=== PATIENT | male | born 1935 | race Caucasian/White ===

== ENCOUNTER 2021-05-25 01:53 | Inpatient (IN) ==
[2021-05-25] MEDS ORDERED: ASPIRIN 325 MG TABLET ONE (02:06)
[2021-05-25] MEDS ORDERED: MORPHINE 2 MG/1 ML SYRINGE IV STA (02:06)
[2021-05-25] MEDS ORDERED: HEPARIN 5,000 UNIT/1 ML VIAL IV ONE (02:06)
[2021-05-25] MEDS ORDERED: MORPHINE 2 MG/1 ML SYRINGE ONE (02:06)
[2021-05-25] MEDS ORDERED: HEPARIN 5,000 UNIT/1 ML VIAL ONE ×2 (02:06→02:33)
[2021-05-25] MEDS ORDERED: NITROGLYCERIN 2% OINT 1 INCH/GM PACK TOP STA (02:06)
[2021-05-25] MEDS ORDERED: ONDANSETRON 4 MG/2 ML VIAL IV STA (02:06)
[2021-05-25] MEDS ORDERED: ONDANSETRON 4 MG/2 ML VIAL ONE (02:06)
[2021-05-25] MEDS ORDERED: ASPIRIN 325 MG TABLET PO STA (02:06)
[2021-05-25] MEDS ORDERED: LIDOCAINE 1% 20 ML VIAL ONE (02:17)
[2021-05-25] MEDS ORDERED: MIDAZOLAM 2 MG/2 ML VIAL ONE (02:24)
[2021-05-25] MEDS ORDERED: HYDROmorphone 2 MG/1 ML VIAL ONE (02:25)
[2021-05-25 02:34] LABS: Basophils # 0.1 10*3/uL (0.0-0.2); Basophils % 0.5 % (0.0-0.8); Eosinophils # 0.3 10*3/uL (0.0-0.87); Eosinophils % 2.1 % (0.00-10.9); Hematocrit 38.5 VOL% (42.0-52.0); Hemoglobin 12.4 GM/DL (14.0-18.0); Immature Granulocytes % 2.1 %; Immature Granulocytes Absolute 0.28 #; Lymphocytes % 29.6 % (21.2-54.2); Mean Corpuscular HGB Conc 32.2 GM/DL (32-36); Mean Corpuscular Volume 95.1 FL (87-102); Mean Platelet Volume 9.5 FL (9.6-12.0); Monocytes % 5.4 % (1.7-12.7); Neutrophils % 60.3 % (38.7-73.9); Platelet Count 229 T/CUMM (130-400); Red Blood Count 4.05 MC/CUMM (3.8-5.5); Red Cell Distribution Width 14.7 % (9.3-17.3); White Blood Count 13.3 T/CUMM (4-12)
[2021-05-25] MEDS ORDERED: TIROFIBAN 5,000 MCG/100 ML PREMIX IV ONE (02:36)
[2021-05-25] MEDS ORDERED: TIROFIBAN 5,000 MCG/100 ML PREMIX IV SCH (02:41)
[2021-05-25 02:45] LABS: INR 1.1; Partial Thromboplastin Time 27.9 SECS (23.9-33.8)
[2021-05-25] MEDS ORDERED: NOREPINEPHRINE 4 MG/4 ML VIAL IV ONE (02:47)
[2021-05-25 02:48] LABS: INR 1.1; PT Patient Result 11.9 SECS (10.5-12.0)
[2021-05-25 02:58] LABS: Bilirubin,Total 0.6 MG/DL (0.20-1.00); Calcium 8.6 MG/DL (8.5-10.1); Osmolality,Calculated 288.3 MOS/KG (273-304); Potassium 3.7 MMOL/L (3.5-5.1); Total Protein 5.8 G/DL (6.4-8.2)
[2021-05-25] MEDS ORDERED: CLOPIDOGREL 300 MG TABLET ONE (03:26)
[2021-05-25] MEDS ORDERED: NOREPINEPHRINE 4 MG in SODIUM CHLORIDE 0.9% 246 ML IV PRN (03:48)
[2021-05-25] MEDS: ROSUVASTATIN 20 MG TABLET PO SCH (04:20)
[2021-05-25] MEDS ORDERED: METOPROLOL TARTRATE 25 MG TABLET PO ONE (05:49)
[2021-05-25 07:58] LABS: CKMB % 14.3 %; High Sensitive Troponin I* > 125000 ng/L (0-78)
[2021-05-25] MEDS: CLOPIDOGREL 75 MG TABLET PO SCH (09:56)
[2021-05-25] MEDS: ASPIRIN CHEW 81 MG TABLET PO SCH (09:56)
[2021-05-25] MEDS: METOPROLOL TARTRATE 25 MG TABLET PO SCH ×2 (09:56→20:00)
[2021-05-25] MEDS ORDERED: SODIUM CHLORIDE 0.9% 1,000 ML IV SCH (12:00)
[2021-05-26 07:39] LABS: Basophils % 0.1 % (0.0-0.8); Eosinophils % 0.2 % (0.00-10.9); Hematocrit 37.5 VOL% (42.0-52.0); Immature Granulocytes % 0.5 %; Immature Granulocytes Absolute 0.07 #; Lymphocytes # 1.1 10*3/uL (1.4-4.0); Lymphocytes % 7.8 % (21.2-54.2); Mean Corpuscular Volume 94.5 FL (87-102); Mean Platelet Volume 9.4 FL (9.6-12.0); Monocytes % 6.2 % (1.7-12.7); Neutrophils % 85.2 % (38.7-73.9); Platelet Count 180 T/CUMM (130-400); Red Blood Count 3.97 MC/CUMM (3.8-5.5); Red Cell Distribution Width 15.2 % (9.3-17.3); White Blood Count 14.4 T/CUMM (4-12)
[2021-05-26 07:57] LABS: Calcium 8.5 MG/DL (8.5-10.1); Osmolality,Calculated 279.7 MOS/KG (273-304); Potassium 4.5 MMOL/L (3.5-5.1)
[2021-05-26] MEDS: METOPROLOL TARTRATE 25 MG TABLET PO SCH ×2 (08:04→20:37)
[2021-05-26] MEDS: CLOPIDOGREL 75 MG TABLET PO SCH (08:04)
[2021-05-26] MEDS: ROSUVASTATIN 20 MG TABLET PO SCH (08:04)
[2021-05-26] MEDS: LEVOTHYROXINE 88 MCG TABLET PO SCH (08:04)
[2021-05-26] MEDS: ASPIRIN CHEW 81 MG TABLET PO SCH (08:04)
[2021-05-26 08:14] LABS: Risk Ratio 2.79; VLDL Cholesterol 13.8 MG/DL
[2021-05-27 05:24] LABS: Basophils % 0.2 % (0.0-0.8); Eosinophils # 0.2 10*3/uL (0.0-0.87); Eosinophils % 1.5 % (0.00-10.9); Hemoglobin 11.6 GM/DL (14.0-18.0); Immature Granulocytes % 0.6 %; Immature Granulocytes Absolute 0.06 #; Lymphocytes # 1.5 10*3/uL (1.4-4.0); Lymphocytes % 14.8 % (21.2-54.2); Mean Corpuscular HGB Conc 32.2 GM/DL (32-36); Mean Corpuscular Volume 96.3 FL (87-102); Monocytes % 7.8 % (1.7-12.7); Neutrophils % 75.1 % (38.7-73.9); Platelet Count 155 T/CUMM (130-400); Red Blood Count 3.74 MC/CUMM (3.8-5.5); Red Cell Distribution Width 15.1 % (9.3-17.3); White Blood Count 10.1 T/CUMM (4-12)
[2021-05-27 05:45] LABS: Calcium 8.7 MG/DL (8.5-10.1); Osmolality,Calculated 280.5 MOS/KG (273-304); Potassium 3.9 MMOL/L (3.5-5.1)
[2021-05-27] MEDS: ASPIRIN CHEW 81 MG TABLET PO SCH (08:29)
[2021-05-27] MEDS: LEVOTHYROXINE 88 MCG TABLET PO SCH (08:29)
[2021-05-27] MEDS: CLOPIDOGREL 75 MG TABLET PO SCH (08:29)
[2021-05-27] MEDS: METOPROLOL TARTRATE 25 MG TABLET PO SCH (08:29)
[2021-05-27] MEDS: ROSUVASTATIN 20 MG TABLET PO SCH (08:29)
[2021-05-27] MEDS ORDERED: ENOXAPARIN 40 MG/0.4 ML SYRINGE SUBCUT SCH (13:30)
[2021-05-27] MEDS: ASCORBIC ACID 500 MG TABLET PO SCH (21:25)
[2021-05-27] MEDS: METOPROLOL SUCCINATE XL 25 MG TABLET PO SCH (21:26)
[2021-05-27] MEDS: ENOXAPARIN 40 MG/0.4 ML SYRINGE SUBCUT SCH (21:26)
[2021-05-28 07:01] LABS: Basophils % 0.3 % (0.0-0.8); Eosinophils # 0.1 10*3/uL (0.0-0.87); Eosinophils % 1.2 % (0.00-10.9); Hematocrit 35.5 VOL% (42.0-52.0); Hemoglobin 11.2 GM/DL (14.0-18.0); Immature Granulocytes % 0.4 %; Immature Granulocytes Absolute 0.04 #; Lymphocytes # 1.2 10*3/uL (1.4-4.0); Lymphocytes % 13.1 % (21.2-54.2); Mean Corpuscular HGB Conc 31.5 GM/DL (32-36); Mean Corpuscular Volume 97.3 FL (87-102); Mean Platelet Volume 10.4 FL (9.6-12.0); Monocytes % 7.3 % (1.7-12.7); Neutrophils % 77.7 % (38.7-73.9); Platelet Count 158 T/CUMM (130-400); Red Blood Count 3.65 MC/CUMM (3.8-5.5); Red Cell Distribution Width 15.2 % (9.3-17.3); White Blood Count 8.9 T/CUMM (4-12)
[2021-05-28 07:31] LABS: Calcium 9.1 MG/DL (8.5-10.1); Osmolality,Calculated 277.8 MOS/KG (273-304); Potassium 3.8 MMOL/L (3.5-5.1)
[2021-05-28] MEDS: ASPIRIN CHEW 81 MG TABLET PO SCH (09:24)
[2021-05-28] MEDS: LEVOTHYROXINE 88 MCG TABLET PO SCH (09:25)
[2021-05-28] MEDS: ROSUVASTATIN 20 MG TABLET PO SCH (09:25)
[2021-05-28] MEDS: CLOPIDOGREL 75 MG TABLET PO SCH (09:25)
[2021-05-28] MEDS: METOPROLOL SUCCINATE XL 25 MG TABLET PO SCH ×2 (09:25→20:55)
[2021-05-28] MEDS: ASCORBIC ACID 500 MG TABLET PO SCH ×2 (09:25→20:55)
[2021-05-28] MEDS: ENOXAPARIN 40 MG/0.4 ML SYRINGE SUBCUT SCH (20:56)
[2021-05-29 06:05] LABS: Basophils % 0.3 % (0.0-0.8); Eosinophils # 0.2 10*3/uL (0.0-0.87); Hemoglobin 10.1 GM/DL (14.0-18.0); Immature Granulocytes % 0.3 %; Immature Granulocytes Absolute 0.02 #; Lymphocytes # 1.1 10*3/uL (1.4-4.0); Lymphocytes % 17.7 % (21.2-54.2); Mean Corpuscular HGB Conc 32.6 GM/DL (32-36); Mean Corpuscular Volume 94.5 FL (87-102); Mean Platelet Volume 10.3 FL (9.6-12.0); Neutrophils % 70.7 % (38.7-73.9); Platelet Count 150 T/CUMM (130-400); Red Blood Count 3.28 MC/CUMM (3.8-5.5)
[2021-05-29 06:39] LABS: Calcium 8.7 MG/DL (8.5-10.1); Osmolality,Calculated 283.4 MOS/KG (273-304)
[2021-05-29] MEDS: LEVOTHYROXINE 88 MCG TABLET PO SCH (09:14)
[2021-05-29] MEDS: ASPIRIN CHEW 81 MG TABLET PO SCH (09:14)
[2021-05-29] MEDS: METOPROLOL SUCCINATE XL 25 MG TABLET PO SCH ×2 (09:15→22:44)
[2021-05-29] MEDS: ASCORBIC ACID 500 MG TABLET PO SCH ×2 (09:15→22:45)
[2021-05-29] MEDS: ROSUVASTATIN 20 MG TABLET PO SCH (09:15)
[2021-05-29] MEDS: CLOPIDOGREL 75 MG TABLET PO SCH (09:15)
[2021-05-29] MEDS: ENOXAPARIN 40 MG/0.4 ML SYRINGE SUBCUT SCH ×2 (22:44→22:50)
[2021-05-30 05:31] LABS: Basophils % 0.7 % (0.0-0.8); Eosinophils # 0.3 10*3/uL (0.0-0.87); Eosinophils % 4.8 % (0.00-10.9); Hematocrit 33.8 VOL% (42.0-52.0); Hemoglobin 10.7 GM/DL (14.0-18.0); Immature Granulocytes % 0.5 %; Immature Granulocytes Absolute 0.03 #; Lymphocytes # 1.1 10*3/uL (1.4-4.0); Lymphocytes % 18.1 % (21.2-54.2); Mean Corpuscular HGB Conc 31.7 GM/DL (32-36); Mean Corpuscular Volume 95.8 FL (87-102); Monocytes % 8.3 % (1.7-12.7); Neutrophils % 67.6 % (38.7-73.9); Platelet Count 167 T/CUMM (130-400); Red Blood Count 3.53 MC/CUMM (3.8-5.5)
[2021-05-30 05:54] LABS: Calcium 8.9 MG/DL (8.5-10.1); Osmolality,Calculated 281.5 MOS/KG (273-304); Potassium 4.3 MMOL/L (3.5-5.1)
[2021-05-30] MEDS ORDERED: SACUBITRIL/VALSARTAN 49-51 MG TABLET PO SCH (09:00)
[2021-05-30] MEDS: ROSUVASTATIN 20 MG TABLET PO SCH (09:11)
[2021-05-30] MEDS: ASPIRIN CHEW 81 MG TABLET PO SCH (09:11)
[2021-05-30] MEDS: CLOPIDOGREL 75 MG TABLET PO SCH (09:11)
[2021-05-30] MEDS: LOSARTAN 25 MG TABLET PO SCH ×2 (09:11→22:17)
[2021-05-30] MEDS: SPIRONOLACTONE 25 MG TABLET PO SCH (09:11)
[2021-05-30] MEDS: LEVOTHYROXINE 88 MCG TABLET PO SCH (09:12)
[2021-05-30] MEDS: ASCORBIC ACID 500 MG TABLET PO SCH ×2 (09:12→20:23)
[2021-05-30] MEDS: APIXABAN 5 MG TABLET PO SCH ×2 (09:12→20:23)
[2021-05-30] MEDS: METOPROLOL SUCCINATE XL 25 MG TABLET PO SCH ×2 (09:12→22:17)
[2021-05-30] MEDS: FUROSEMIDE 40 MG/4 ML VIAL IV SCH ×2 (09:13→17:03)
[2021-05-30] MEDS ORDERED: SODIUM CHLORIDE 0.45% 1,000 ML IV SCH (17:00)
[2021-05-31 05:04] LABS: Basophils % 0.7 % (0.0-0.8); Eosinophils # 0.2 10*3/uL (0.0-0.87); Eosinophils % 3.4 % (0.00-10.9); Hematocrit 30.9 VOL% (42.0-52.0); Hemoglobin 10.2 GM/DL (14.0-18.0); Immature Granulocytes % 1.2 %; Immature Granulocytes Absolute 0.07 #; Lymphocytes # 1.5 10*3/uL (1.4-4.0); Lymphocytes % 25.8 % (21.2-54.2); Mean Corpuscular Volume 93.6 FL (87-102); Monocytes % 10.6 % (1.7-12.7); Neutrophils % 58.3 % (38.7-73.9); Platelet Count 173 T/CUMM (130-400); Red Cell Distribution Width 14.6 % (9.3-17.3)
[2021-05-31 05:26] LABS: Calcium 8.9 MG/DL (8.5-10.1); Osmolality,Calculated 275.8 MOS/KG (273-304)
[2021-05-31] MEDS: ASPIRIN CHEW 81 MG TABLET PO SCH (09:30)
[2021-05-31] MEDS: CLOPIDOGREL 75 MG TABLET PO SCH (09:30)
[2021-05-31] MEDS: ASCORBIC ACID 500 MG TABLET PO SCH ×2 (09:30→20:19)
[2021-05-31] MEDS: SPIRONOLACTONE 25 MG TABLET PO SCH (09:30)
[2021-05-31] MEDS: APIXABAN 5 MG TABLET PO SCH ×2 (09:31→20:19)
[2021-05-31] MEDS: METOPROLOL SUCCINATE XL 25 MG TABLET PO SCH ×2 (09:31→20:19)
[2021-05-31] MEDS: ROSUVASTATIN 20 MG TABLET PO SCH (09:31)
[2021-05-31] MEDS: LOSARTAN 25 MG TABLET PO SCH ×2 (09:31→20:19)
[2021-05-31] MEDS: LEVOTHYROXINE 88 MCG TABLET PO SCH (09:31)
[2021-06-01 05:49] LABS: Basophils # 0.1 10*3/uL (0.0-0.2); Basophils % 0.8 % (0.0-0.8); Eosinophils # 0.4 10*3/uL (0.0-0.87); Eosinophils % 4.6 % (0.00-10.9); Hematocrit 36.7 VOL% (42.0-52.0); Hemoglobin 11.9 GM/DL (14.0-18.0); Immature Granulocytes % 0.4 %; Immature Granulocytes Absolute 0.03 #; Lymphocytes % 26.3 % (21.2-54.2); Mean Corpuscular HGB Conc 32.4 GM/DL (32-36); Mean Corpuscular Volume 94.3 FL (87-102); Mean Platelet Volume 10.4 FL (9.6-12.0); Monocytes % 8.4 % (1.7-12.7); Neutrophils % 59.5 % (38.7-73.9); Platelet Count 227 T/CUMM (130-400); Red Blood Count 3.89 MC/CUMM (3.8-5.5); Red Cell Distribution Width 14.6 % (9.3-17.3); White Blood Count 7.5 T/CUMM (4-12)
[2021-06-01 06:35] LABS: Calcium 9.1 MG/DL (8.5-10.1); Osmolality,Calculated 282.3 MOS/KG (273-304); Potassium 4.3 MMOL/L (3.5-5.1)
[2021-06-01 08:23] VITALS: BP 106/64
[2021-06-01] MEDS: ASCORBIC ACID 500 MG TABLET PO SCH (08:35)
[2021-06-01] MEDS: METOPROLOL SUCCINATE XL 25 MG TABLET PO SCH (08:35)
[2021-06-01] MEDS: LOSARTAN 25 MG TABLET PO SCH (08:36)
[2021-06-01] MEDS: CLOPIDOGREL 75 MG TABLET PO SCH (08:36)
[2021-06-01] MEDS: LEVOTHYROXINE 88 MCG TABLET PO SCH (08:36)
[2021-06-01] MEDS: SPIRONOLACTONE 25 MG TABLET PO SCH (08:36)
[2021-06-01] MEDS: ROSUVASTATIN 20 MG TABLET PO SCH (08:37)
[2021-06-01] MEDS: ASPIRIN CHEW 81 MG TABLET PO SCH (08:37)
[2021-06-01] MEDS: APIXABAN 5 MG TABLET PO SCH (08:37)
== END 2021-06-01 13:54 | disposition home health service (06) | DRG 246 ==
LOC: EDUNIT# → N.ED 01:53 → N.ICU 02:15 → N.EDINP 02:59 → N.ICU 04:43 → N.CVR 21:59 → N.TELEN 05-26 11:11
PROVIDERS: ADMIT Internal Medicine Cardiovascular Disease; ATTEND Internal Medicine Cardiovascular Disease
PROC: CLCCHCL (ICD-10-PCS; 2021-05-25 02:30)

== ENCOUNTER 2021-06-17 12:02 | Inpatient (IN) ==
[2021-06-17] MEDS ORDERED: levETIRAcetam 500 MG/5 ML VIAL IV ONE (13:03)
[2021-06-17 13:16] LABS: Hematocrit 38.2 VOL% (42.0-52.0); Hemoglobin 12.9 GM/DL (14.0-18.0); Immature Granulocytes % 0.3 %; Immature Granulocytes Absolute 0.02 #; Lymphocytes # 0.6 10*3/uL (1.4-4.0); Lymphocytes % 10.3 % (21.2-54.2); Mean Corpuscular HGB Conc 33.8 GM/DL (32-36); Mean Platelet Volume 10.9 FL (9.6-12.0); Monocytes % 5.8 % (1.7-12.7); Neutrophils % 83.6 % (38.7-73.9); Platelet Count 126 T/CUMM (130-400); Red Blood Count 4.39 MC/CUMM (3.8-5.5); Red Cell Distribution Width 14.5 % (9.3-17.3); White Blood Count 5.9 T/CUMM (4-12)
[2021-06-17 13:34] LABS: INR 1.4; PT Patient Result 14.9 SECS (10.5-12.0)
[2021-06-17] MEDS ORDERED: SODIUM CHLORIDE 0.9% 500 ML IV STA ×2 (13:39→15:29)
[2021-06-17 13:41] LABS: Albumin 2.8 G/DL (3.4-5.0); Bilirubin,Total 0.6 MG/DL (0.20-1.00); Osmolality,Calculated 297.2 MOS/KG (273-304); Potassium 4.6 MMOL/L (3.5-5.1); Total Protein 6.7 G/DL (6.4-8.2)
[2021-06-17] MEDS: SODIUM CHLORIDE 0.9% 1,000 ML IV SCH ×2 (15:38→17:44)
[2021-06-17] MEDS ORDERED: ONDANSETRON 4 MG/2 ML VIAL IV PRN (17:21)
[2021-06-17] MEDS ORDERED: GLUCAGON 1 MG VIAL IM PRN ×2 (17:21→17:35)
[2021-06-17] MEDS ORDERED: ACETAMINOPHEN 325 MG TABLET PO PRN (17:21)
[2021-06-17] MEDS ORDERED: DEXTROSE 50% 25 GM/50 ML VIAL IV PRN ×2 (17:21→17:35)
[2021-06-17] MEDS ORDERED: MELATONIN 3 MG TABLET PO PRN (17:24)
[2021-06-17] MEDS ORDERED: LORazepam 2 MG/1 ML VIAL IV PRN ×2 (17:26→17:37)
[2021-06-17] MEDS ORDERED: HEPARIN 5,000 UNIT/1 ML VIAL SUBCUT SCH (17:30)
[2021-06-17] MEDS ORDERED: SODIUM CHLORIDE 0.9% 1,000 ML IV SCH (17:30)
[2021-06-17] MEDS: HEPARIN 5,000 UNIT/1 ML VIAL SUBCUT SCH (17:51)
[2021-06-17] MEDS: FAMOTIDINE 20 MG TABLET PO SCH (20:40)
[2021-06-17] MEDS: ASCORBIC ACID 500 MG TABLET PO SCH (20:40)
[2021-06-17] MEDS: METOPROLOL SUCCINATE XL 25 MG TABLET PO SCH (20:40)
[2021-06-17] MEDS ORDERED: APIXABAN 2.5 MG TABLET PO SCH (21:00)
[2021-06-18] MEDS: SODIUM CHLORIDE 0.9% 1,000 ML IV SCH ×4 (02:00→20:13)
[2021-06-18] MEDS: HEPARIN 5,000 UNIT/1 ML VIAL SUBCUT SCH ×3 (02:03→17:03)
[2021-06-18 05:44] LABS: Basophils % 0.2 % (0.0-0.8); Eosinophils % 0.2 % (0.00-10.9); Hematocrit 36.1 VOL% (42.0-52.0); Hemoglobin 12.3 GM/DL (14.0-18.0); Immature Granulocytes % 0.4 %; Immature Granulocytes Absolute 0.02 #; Mean Corpuscular HGB Conc 34.1 GM/DL (32-36); Mean Corpuscular Volume 89.1 FL (87-102); Mean Platelet Volume 11.2 FL (9.6-12.0); Monocytes % 6.8 % (1.7-12.7); Neutrophils % 72.4 % (38.7-73.9); Platelet Count 102 T/CUMM (130-400); Red Blood Count 4.05 MC/CUMM (3.8-5.5); Red Cell Distribution Width 14.8 % (9.3-17.3); White Blood Count 4.9 T/CUMM (4-12)
[2021-06-18 05:56] LABS: INR 1.4; PT Patient Result 15.3 SECS (10.5-12.0)
[2021-06-18] MEDS: LEVOTHYROXINE 88 MCG TABLET PO SCH (05:58)
[2021-06-18 06:32] LABS: Albumin 2.4 G/DL (3.4-5.0); Bilirubin,Total 0.7 MG/DL (0.20-1.00); Calcium 7.5 MG/DL (8.5-10.1); Ferritin 842.3 ng/mL (26-388); Osmolality,Calculated 305.7 MOS/KG (273-304); Potassium 4.4 MMOL/L (3.5-5.1); Total Protein 5.8 G/DL (6.4-8.2)
[2021-06-18] MEDS ORDERED: LORazepam 2 MG/1 ML VIAL ONE (08:11)
[2021-06-18] MEDS: CHOLECALCIFEROL 1,000 UNIT TABLET PO SCH (08:59)
[2021-06-18] MEDS: ZINC GLUCONATE 50 MG TABLET PO SCH (08:59)
[2021-06-18] MEDS: ASCORBIC ACID 500 MG TABLET PO SCH ×2 (09:00→21:00)
[2021-06-18] MEDS ORDERED: ZINC SULFATE 220 MG CAPSULE PO SCH (09:00)
[2021-06-18] MEDS ORDERED: DEXAMETHASONE INJ 10 MG in SODIUM CHLORIDE 0.9% 50 ML IV SCH (09:00)
[2021-06-18] MEDS: PANTOPRAZOLE 40 MG TABLET PO SCH (09:00)
[2021-06-18] MEDS: CLOPIDOGREL 75 MG TABLET PO SCH (09:00)
[2021-06-18] MEDS: FAMOTIDINE 20 MG TABLET PO SCH ×3 (09:01→21:00)
[2021-06-18] MEDS: DEXAMETHASONE 4 MG/1 ML VIAL IV SCH (09:01)
[2021-06-18] MEDS: ASPIRIN CHEW 81 MG TABLET PO SCH (09:02)
[2021-06-18] MEDS: AZITHROMYCIN 250 MG TABLET PO SCH (09:03)
[2021-06-18] MEDS: METOPROLOL SUCCINATE XL 25 MG TABLET PO SCH ×2 (11:25→21:00)
[2021-06-18] MEDS: CETIRIZINE 10 MG TABLET PO SCH (11:26)
[2021-06-18] MEDS: cefTRIAXone 1,000 MG in SODIUM CHLORIDE 0.9% 100 ML IV SCH (14:24)
[2021-06-18 16:03] LABS: Bacteria,Urine Moderate /HPF (Few); Bilirubin,Urine Negative (Negative); Blood, Urine Large mg/dL (Negative); Glucose,Urine (UA) Negative (Negative); Ketones,Urine Negative (Negative); Mucus,Urine Occasional /LPF (Occasional); Nitrite,Urine Negative (Negative); Protein,Urine 30 MG/DL; Urine Appearance Slightly Hazy (Clear); Urine Color Yellow (Yellow); Urine Specific Gravity 1.008 (1.001-1.035); Urine Urobilinogen < 2.0 EU/DL (0.2-1.0)
[2021-06-18 16:05] LABS: Barbiturates Screen,Urine Negative (Negative); Benzodiazepines Screen,Urine Negative (Negative); Cannabinoid Screen,Urine Negative (Negative); Opiate Screen,Urine Negative (Negative); Phencyclidine Screen,Urine Negative (Negative)
[2021-06-19] MEDS: HEPARIN 5,000 UNIT/1 ML VIAL SUBCUT SCH ×3 (02:30→18:17)
[2021-06-19] MEDS: SODIUM CHLORIDE 0.9% 1,000 ML IV SCH ×2 (04:58→10:37)
[2021-06-19] MEDS: LEVOTHYROXINE 88 MCG TABLET PO SCH (07:00)
[2021-06-19 07:02] LABS: Hematocrit 39.7 VOL% (42.0-52.0); Hemoglobin 12.9 GM/DL (14.0-18.0); Immature Granulocytes % 0.4 %; Immature Granulocytes Absolute 0.02 #; Lymphocytes # 0.5 10*3/uL (1.4-4.0); Lymphocytes % 9.5 % (21.2-54.2); Mean Corpuscular HGB Conc 32.5 GM/DL (32-36); Mean Corpuscular Volume 92.8 FL (87-102); Mean Platelet Volume 11.1 FL (9.6-12.0); Monocytes % 5.5 % (1.7-12.7); Neutrophils % 84.6 % (38.7-73.9); Platelet Count 97 T/CUMM (130-400); Red Blood Count 4.28 MC/CUMM (3.8-5.5); Red Cell Distribution Width 15.3 % (9.3-17.3); White Blood Count 4.9 T/CUMM (4-12)
[2021-06-19 07:28] LABS: Calcium 7.6 MG/DL (8.5-10.1); Osmolality,Calculated 314.1 MOS/KG (273-304); Potassium 5.4 MMOL/L (3.5-5.1)
[2021-06-19 08:07] LABS: Platelet Estimate Decreased
[2021-06-19 08:08] LABS: Anisocytosis 1+; Burr Cells 3+; Macrocytosis 1+; Spherocytes Few
[2021-06-19] MEDS: ASPIRIN CHEW 81 MG TABLET PO SCH (10:31)
[2021-06-19] MEDS: DEXAMETHASONE 4 MG/1 ML VIAL IV SCH (10:31)
[2021-06-19] MEDS: FAMOTIDINE 20 MG TABLET PO SCH ×3 (10:32→21:14)
[2021-06-19] MEDS: CLOPIDOGREL 75 MG TABLET PO SCH (10:34)
[2021-06-19] MEDS: PANTOPRAZOLE 40 MG TABLET PO SCH (10:34)
[2021-06-19] MEDS: CHOLECALCIFEROL 1,000 UNIT TABLET PO SCH (10:34)
[2021-06-19] MEDS: METOPROLOL SUCCINATE XL 25 MG TABLET PO SCH ×2 (10:34→21:14)
[2021-06-19] MEDS: ASCORBIC ACID 500 MG TABLET PO SCH ×2 (10:34→21:14)
[2021-06-19] MEDS: AZITHROMYCIN 250 MG TABLET PO SCH (10:35)
[2021-06-19] MEDS: ZINC GLUCONATE 50 MG TABLET PO SCH (10:35)
[2021-06-19] MEDS: CETIRIZINE 10 MG TABLET PO SCH (10:36)
[2021-06-19] MEDS: cefTRIAXone 1,000 MG in SODIUM CHLORIDE 0.9% 100 ML IV SCH (11:30)
[2021-06-19] MEDS: SODIUM BICARB INJ 50 MEQ in DEXTROSE 5% 1,000 ML IV SCH (17:30)
[2021-06-19] MEDS: LORazepam 2 MG/1 ML VIAL IV PRN (20:15)
[2021-06-20] MEDS: HEPARIN 5,000 UNIT/1 ML VIAL SUBCUT SCH ×3 (03:15→17:46)
[2021-06-20] MEDS: LORazepam 2 MG/1 ML VIAL IV PRN ×2 (03:30→19:45)
[2021-06-20] MEDS: SODIUM BICARB INJ 50 MEQ in DEXTROSE 5% 1,000 ML IV SCH ×2 (04:14→14:06)
[2021-06-20 04:23] LABS: ABG Base Excess -12.2 MMOL/L (-2.5-2.5); ABG Oxygen Saturation 98.2 % (95-100); ABG PCO2 22.8 MM HG (35-48); ABG PH 7.337 (7.35-7.45)
[2021-06-20 04:24] LABS: Allen Test Positive
[2021-06-20] MEDS: LEVOTHYROXINE 88 MCG TABLET PO SCH (06:38)
[2021-06-20] MEDS: DEXAMETHASONE 4 MG/1 ML VIAL IV SCH (09:03)
[2021-06-20] MEDS: ASPIRIN CHEW 81 MG TABLET PO SCH (09:29)
[2021-06-20] MEDS: CLOPIDOGREL 75 MG TABLET PO SCH (09:29)
[2021-06-20] MEDS: FAMOTIDINE 20 MG TABLET PO SCH ×3 (09:29→20:14)
[2021-06-20] MEDS: AZITHROMYCIN 250 MG TABLET PO SCH (09:30)
[2021-06-20] MEDS: ZINC GLUCONATE 50 MG TABLET PO SCH (09:30)
[2021-06-20] MEDS: CHOLECALCIFEROL 1,000 UNIT TABLET PO SCH (09:30)
[2021-06-20] MEDS: METOPROLOL SUCCINATE XL 25 MG TABLET PO SCH ×2 (09:30→20:15)
[2021-06-20] MEDS: ASCORBIC ACID 500 MG TABLET PO SCH ×2 (09:30→20:15)
[2021-06-20] MEDS: PANTOPRAZOLE 40 MG TABLET PO SCH (09:30)
[2021-06-20] MEDS: CETIRIZINE 10 MG TABLET PO SCH (09:31)
[2021-06-20 11:27] LABS: Hemoglobin 11.1 GM/DL (14.0-18.0); Immature Granulocytes % 0.3 %; Immature Granulocytes Absolute 0.03 #; Lymphocytes # 0.4 10*3/uL (1.4-4.0); Lymphocytes % 4.8 % (21.2-54.2); Mean Corpuscular HGB Conc 33.6 GM/DL (32-36); Mean Platelet Volume 10.7 FL (9.6-12.0); Neutrophils % 89.9 % (38.7-73.9); Platelet Count 125 T/CUMM (130-400); Red Blood Count 3.75 MC/CUMM (3.8-5.5); Red Cell Distribution Width 15.2 % (9.3-17.3); White Blood Count 8.7 T/CUMM (4-12)
[2021-06-20 11:54] LABS: Calcium 7.7 MG/DL (8.5-10.1); Osmolality,Calculated 317.5 MOS/KG (273-304); Potassium 4.6 MMOL/L (3.5-5.1)
[2021-06-20] MEDS: cefTRIAXone 1,000 MG in SODIUM CHLORIDE 0.9% 100 ML IV SCH (11:54)
[2021-06-20 11:58] LABS: Ferritin 586.8 ng/mL (26-388)
[2021-06-20 12:07] LABS: Band Neutrophils 3 % (0-10); Lymphocytes 6 % (20-55); Segmented Neutrophils 83 % (50-85); Total Cells Counted 100
[2021-06-20 12:08] LABS: Hypochromasia Slight; Microcytosis 1+; Ovalocytes Few
[2021-06-20 12:09] LABS: Platelet Estimate Adequate
[2021-06-21] MEDS: SODIUM BICARB INJ 50 MEQ in DEXTROSE 5% 1,000 ML IV SCH ×2 (01:51→13:07)
[2021-06-21] MEDS: HEPARIN 5,000 UNIT/1 ML VIAL SUBCUT SCH ×3 (02:26→17:00)
[2021-06-21] MEDS: LORazepam 2 MG/1 ML VIAL IV PRN ×3 (03:30→15:18)
[2021-06-21] MEDS: LEVOTHYROXINE 88 MCG TABLET PO SCH (06:16)
[2021-06-21 06:59] LABS: Basophils % 0.1 % (0.0-0.8); Hematocrit 31.9 VOL% (42.0-52.0); Hemoglobin 10.7 GM/DL (14.0-18.0); Immature Granulocytes % 0.9 %; Lymphocytes # 0.4 10*3/uL (1.4-4.0); Lymphocytes % 3.9 % (21.2-54.2); Mean Corpuscular HGB Conc 33.5 GM/DL (32-36); Mean Corpuscular Volume 87.6 FL (87-102); Mean Platelet Volume 10.5 FL (9.6-12.0); Monocytes % 4.9 % (1.7-12.7); Neutrophils % 90.2 % (38.7-73.9); Platelet Count 123 T/CUMM (130-400); Red Blood Count 3.64 MC/CUMM (3.8-5.5); Red Cell Distribution Width 15.1 % (9.3-17.3); White Blood Count 11.2 T/CUMM (4-12)
[2021-06-21 07:17] LABS: Calcium 7.7 MG/DL (8.5-10.1); Osmolality,Calculated 311.5 MOS/KG (273-304); Potassium 4.2 MMOL/L (3.5-5.1)
[2021-06-21 07:25] LABS: Hypochromasia Slight; Lymphocytes 5 % (20-55); Microcytosis Slight; Segmented Neutrophils 89 % (50-85); Total Cells Counted 100
[2021-06-21 07:26] LABS: Ovalocytes Slight
[2021-06-21 07:33] LABS: Ferritin 532.2 ng/mL (26-388)
[2021-06-21] MEDS: DEXAMETHASONE 4 MG/1 ML VIAL IV SCH (08:08)
[2021-06-21] MEDS: cefTRIAXone 1,000 MG in SODIUM CHLORIDE 0.9% 100 ML IV SCH (08:09)
[2021-06-21] MEDS: FAMOTIDINE 20 MG TABLET PO SCH (08:30)
[2021-06-21] MEDS: METOPROLOL SUCCINATE XL 25 MG TABLET PO SCH (08:30)
[2021-06-21] MEDS: CLOPIDOGREL 75 MG TABLET PO SCH (08:30)
[2021-06-21] MEDS: PANTOPRAZOLE 40 MG TABLET PO SCH (08:30)
[2021-06-21] MEDS: ASPIRIN CHEW 81 MG TABLET PO SCH (08:30)
[2021-06-21] MEDS: AZITHROMYCIN 250 MG TABLET PO SCH (08:31)
[2021-06-21] MEDS: ZINC GLUCONATE 50 MG TABLET PO SCH (08:31)
[2021-06-21] MEDS: CHOLECALCIFEROL 1,000 UNIT TABLET PO SCH (08:31)
[2021-06-21] MEDS: ASCORBIC ACID 500 MG TABLET PO SCH (08:31)
[2021-06-21] MEDS: CETIRIZINE 10 MG TABLET PO SCH (08:32)
[2021-06-21] MEDS: SODIUM CHLORIDE 0.9% 1,000 ML IV SCH (11:00)
[2021-06-21] MEDS ORDERED: LORazepam 2 MG/1 ML VIAL IV ONE (20:10)
[2021-06-22] MEDS: METOPROLOL SUCCINATE XL 25 MG TABLET PO SCH ×2 (00:15→08:32)
[2021-06-22] MEDS: ASCORBIC ACID 500 MG TABLET PO SCH ×2 (00:15→08:32)
[2021-06-22] MEDS: FAMOTIDINE 20 MG TABLET PO SCH ×2 (00:15→08:31)
[2021-06-22] MEDS: SODIUM BICARB INJ 50 MEQ in DEXTROSE 5% 1,000 ML IV SCH ×2 (02:45→13:52)
[2021-06-22] MEDS: HEPARIN 5,000 UNIT/1 ML VIAL SUBCUT SCH ×3 (04:54→17:09)
[2021-06-22 05:59] LABS: Basophils % 0.2 % (0.0-0.8); Hematocrit 34.2 VOL% (42.0-52.0); Immature Granulocytes % 1.3 %; Immature Granulocytes Absolute 0.21 #; Lymphocytes # 0.6 10*3/uL (1.4-4.0); Mean Corpuscular HGB Conc 35.1 GM/DL (32-36); Mean Corpuscular Volume 86.6 FL (87-102); Mean Platelet Volume 10.8 FL (9.6-12.0); Monocytes % 6.8 % (1.7-12.7); Neutrophils % 87.7 % (38.7-73.9); Platelet Count 147 T/CUMM (130-400); Red Blood Count 3.95 MC/CUMM (3.8-5.5); Red Cell Distribution Width 14.9 % (9.3-17.3)
[2021-06-22 06:12] LABS: Calcium 8.3 MG/DL (8.5-10.1); Osmolality,Calculated 304.7 MOS/KG (273-304); Potassium 4.7 MMOL/L (3.5-5.1)
[2021-06-22 06:36] LABS: Hypochromasia 1+; Lymphocytes 2 % (20-55); Microcytosis 1+; Segmented Neutrophils 92 % (50-85); Total Cells Counted 100
[2021-06-22 06:37] LABS: Ovalocytes Few; Platelet Estimate Adequate
[2021-06-22] MEDS: LEVOTHYROXINE 88 MCG TABLET PO SCH (08:31)
[2021-06-22] MEDS: CLOPIDOGREL 75 MG TABLET PO SCH (08:31)
[2021-06-22] MEDS: ASPIRIN CHEW 81 MG TABLET PO SCH (08:31)
[2021-06-22] MEDS: PANTOPRAZOLE 40 MG TABLET PO SCH (08:31)
[2021-06-22] MEDS: ZINC GLUCONATE 50 MG TABLET PO SCH (08:32)
[2021-06-22] MEDS: CHOLECALCIFEROL 1,000 UNIT TABLET PO SCH (08:32)
[2021-06-22] MEDS: CETIRIZINE 10 MG TABLET PO SCH (08:32)
[2021-06-22] MEDS: cefTRIAXone 1,000 MG in SODIUM CHLORIDE 0.9% 100 ML IV SCH (09:06)
[2021-06-22] MEDS: DEXAMETHASONE 4 MG/1 ML VIAL IV SCH (09:08)
[2021-06-22] MEDS ORDERED: TUBERCULIN SKIN TEST 0.1 ML SYRINGE INTRADERM ONE (09:58)
[2021-06-23] MEDS: SODIUM BICARB INJ 50 MEQ in DEXTROSE 5% 1,000 ML IV SCH (01:13)
[2021-06-23] MEDS: HEPARIN 5,000 UNIT/1 ML VIAL SUBCUT SCH ×2 (01:14→08:38)
[2021-06-23] MEDS: METOPROLOL SUCCINATE XL 25 MG TABLET PO SCH ×2 (02:22→09:59)
[2021-06-23] MEDS: ASCORBIC ACID 500 MG TABLET PO SCH ×2 (02:22→09:59)
[2021-06-23] MEDS: FAMOTIDINE 20 MG TABLET PO SCH ×2 (02:23→09:58)
[2021-06-23 05:52] LABS: Basophils % 0.1 % (0.0-0.8); Hematocrit 34.6 VOL% (42.0-52.0); Hemoglobin 11.8 GM/DL (14.0-18.0); Immature Granulocytes % 1.6 %; Immature Granulocytes Absolute 0.23 #; Lymphocytes # 0.6 10*3/uL (1.4-4.0); Lymphocytes % 4.1 % (21.2-54.2); Mean Corpuscular HGB Conc 34.1 GM/DL (32-36); Mean Corpuscular Volume 87.6 FL (87-102); Mean Platelet Volume 11.7 FL (9.6-12.0); Neutrophils % 86.2 % (38.7-73.9); Platelet Count 160 T/CUMM (130-400); Red Blood Count 3.95 MC/CUMM (3.8-5.5); Red Cell Distribution Width 14.7 % (9.3-17.3); White Blood Count 14.7 T/CUMM (4-12)
[2021-06-23 06:16] LABS: Calcium 8.3 MG/DL (8.5-10.1); Osmolality,Calculated 303.4 MOS/KG (273-304); Potassium 4.1 MMOL/L (3.5-5.1)
[2021-06-23 06:20] LABS: Hypochromasia Slight; Lymphocytes 5 % (20-55); Microcytosis Slight; Platelet Estimate Adequate; Segmented Neutrophils 90 % (50-85); Total Cells Counted 100
[2021-06-23] MEDS: cefTRIAXone 1,000 MG in SODIUM CHLORIDE 0.9% 100 ML IV SCH (08:39)
[2021-06-23] MEDS: DEXAMETHASONE 4 MG/1 ML VIAL IV SCH (08:39)
[2021-06-23] MEDS: ASPIRIN CHEW 81 MG TABLET PO SCH (09:58)
[2021-06-23] MEDS: CLOPIDOGREL 75 MG TABLET PO SCH (09:58)
[2021-06-23] MEDS: PANTOPRAZOLE 40 MG TABLET PO SCH (09:58)
[2021-06-23] MEDS: CETIRIZINE 10 MG TABLET PO SCH (09:59)
[2021-06-23] MEDS: ZINC GLUCONATE 50 MG TABLET PO SCH (09:59)
[2021-06-23] MEDS: CHOLECALCIFEROL 1,000 UNIT TABLET PO SCH (09:59)
[2021-06-23 10:08] VITALS: BP 154/88
== END 2021-06-23 13:00 | disposition hospice, home (50) | DRG 177 ==
LOC: N.ED 12:02 → SUATTDRO 17:22 → N.EDINP 17:22 → N.2E 18:09
PROVIDERS: ADMIT Emergency Medicine; ATTEND Internal Medicine